=== PATIENT | female | born 2000 | race Hispanic/Latino ===

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

== ENCOUNTER 2020-05-05 07:38 | Observation (INO) | payer MEDICAID ==
[~2020-05-05] VITALS: Ht 149.9 cm; Wt 68.0 kg
[~2020-05-05 07:38] MED LIST: PREN-202 PO
[2020-05-05] MEDS ORDERED: ONDANSETRON HCL 4 MG/2 ML VIAL ONE ×3 (07:55→23:08)
[2020-05-05 08:03] LABS: BASOPHILS % (AUTO) 0.4 % (0.0-5.0); EOSINOPHILS % (AUTO) 1.7 % (0.0-8.0); HEMATOCRIT 37.9 % (36-48); LYMPHOCYTES % (AUTO) 36.1 % (21.0-51.0); MEAN CORPUSCULAR HEMOGLOBIN 26.4 pg (27.0-33.0); MEAN CORPUSCULAR HGB CONC 31.9 g/dL (32.0-36.0); MEAN CORPUSCULAR VOLUME 82.6 fL (80-100); MONOCYTES % (AUTO) 6.3 % (3.0-13.0); NEUTROPHILS % (AUTO) 54.4 % (40.0-77.0); PLATELET COUNT (AUTO) 365 K/uL (130-400); RED BLOOD CELL COUNT(AUTO) 4.59 MIL/uL (4.00-5.50); RED CELL DISTRIBUTION WIDTH 14.9 % (11.0-15.5); WHITE BLOOD COUNT (AUTO) 10.6 K/uL (4.8-10.8)
[2020-05-05] MEDS ORDERED: KETOROLAC TROMETHAMINE 30MG/ML ONE (08:04)
[2020-05-05] MEDS ORDERED: MORPHINE SULFATE 4 MG/1ML SYG ONE (08:04)
[2020-05-05 08:16] LABS: ALBUMIN 3.4 g/dL (3.5-5.0); BILIRUBIN,TOTAL 0.1 mg/dL (0.2-1.0); POTASSIUM 3.7 mmol/L (3.5-5.1); TOTAL PROTEIN, SERUM 7.2 g/dL (6.0-8.3)
[2020-05-05 08:19] LABS: APPEARANCE,URINE Clear (CLEAR); BILIRUBIN,URINE Negative (NEGATIVE); COLOR,URINE Yellow (YELLOW); GLUCOSE, URINE (UA) Negative (NEGATIVE); KETONES,URINE Negative (NEGATIVE); LEUKOCYTE ESTERASE ,URINE Moderate (NEGATIVE); NITRATE,URINE Negative (NEGATIVE); OCCULT BLOOD,URINE Large (NEGATIVE); PH,URINE 6.5 (5.0-8.0); PROTEIN,URINE Trace mg/dL (NEGATIVE); UROBILINOGEN,URINE 0.2 mg/dL (0.2-1.0)
[2020-05-05 08:25] LABS: HCG,QUAL RESULT NEGATIVE (NEGATIVE)
[2020-05-05 08:49] LABS: BACTERIA,URINE Moderate /HPF (None Seen)
[2020-05-05 08:50] LABS: SQUAMOUS EPITHELIAL CELL,UR 0-2 /HPF (0-2)
[2020-05-05] MEDS ORDERED: ACETAMINOPHEN 325 MG TAB PO PRN ×2 (12:15)
[2020-05-05] MEDS ORDERED: LACTULOSE 20 GM/30 ML UDCUP PO PRN (12:15)
[2020-05-05] MEDS ORDERED: HYDROMORPHONE HCL 0.5 MG/0.5 ML ML IV PRN (13:30)
[2020-05-05] MEDS ORDERED: HYDROMORPHONE HCL 0.5 MG/0.5 ML ML ONE ×3 (14:10→23:08)
[2020-05-05] MEDS ORDERED: CEFTRIAXONE SODIUM 1 GM ONE (14:40)
[2020-05-05] MEDS ORDERED: SODIUM CHLORIDE 0.9% 1000ML 1,000 ML IV ONE (14:41)
[2020-05-05] MEDS ORDERED: SODIUM CHLORIDE 0.9% 50 ML IV ONE (14:41)
[2020-05-05] MEDS ORDERED: FAMOTIDINE/PF 20 MG/2 ML VIAL IV ONE (20:03)
[2020-05-06] VITALS (16 sets, daily range): BP systolic 97–134; BP diastolic 40–88
[2020-05-06] MEDS ORDERED: HYDROMORPHONE HCL 0.5 MG/0.5 ML ML ONE ×2 (03:08→07:12)
[2020-05-06 05:48] LABS: BASOPHILS % (AUTO) 0.3 % (0.0-5.0); EOSINOPHILS % (AUTO) 0.8 % (0.0-8.0); HEMATOCRIT 36.4 % (36-48); LYMPHOCYTES % (AUTO) 19.9 % (21.0-51.0); MEAN CORPUSCULAR HEMOGLOBIN 26.9 pg (27.0-33.0); MEAN CORPUSCULAR HGB CONC 32.1 g/dL (32.0-36.0); MEAN CORPUSCULAR VOLUME 83.7 fL (80-100); MONOCYTES % (AUTO) 7.3 % (3.0-13.0); NEUTROPHILS % (AUTO) 71.5 % (40.0-77.0); PLATELET COUNT (AUTO) 271 K/uL (130-400); RED BLOOD CELL COUNT(AUTO) 4.35 MIL/uL (4.00-5.50); WHITE BLOOD COUNT (AUTO) 10.6 K/uL (4.8-10.8)
[2020-05-06 06:00] LABS: CREATININE 1.1 mg/dL (0.5-1.5); POTASSIUM 3.9 mmol/L (3.5-5.1)
[2020-05-06] MEDS ORDERED: LUBIPROSTONE 24 MCG CAP PO SCH (08:00)
[2020-05-06] MEDS ORDERED: ONDANSETRON HCL 4 MG/2 ML VIAL ONE ×2 (08:42→11:36)
[2020-05-06] MEDS ORDERED: ENOXAPARIN SODIUM 40 MG/0.4 ML SYRINGE SQ SCH (09:00)
[2020-05-06] MEDS ORDERED: LACTATED RINGERS 1000ML 1,000 ML IV ONE (10:31)
[2020-05-06] MEDS ORDERED: LIDOCAINE PF 2% 5ML ABBOJECT ONE (11:35)
[2020-05-06] MEDS ORDERED: DEXAMETHASONE SOD PHOSPHATE 10MG/ML 1ML VIAL ONE (11:35)
[2020-05-06] MEDS ORDERED: SUCCINYLCHOLINE 200MG/10ML SYR ONE (11:35)
[2020-05-06] MEDS ORDERED: FENTANYL CITRATE PF 50 MCG/1 ML 2ML VIAL ONE (11:36)
[2020-05-06] MEDS ORDERED: PROPOFOL 10 MG/ML 20ML VIAL IV ONE (11:36)
[2020-05-06] MEDS ORDERED: ROCURONIUM 10MG/1ML SYR 10 MG/ML ML ONE (11:36)
[2020-05-06] MEDS ORDERED: MIDAZOLAM HCL 1 MG/ML 2ML VIAL ONE (11:36)
[2020-05-06] MEDS ORDERED: IOHEXOL-350 50ML VIAL IV ONE (11:43)
[2020-05-06] MEDS: CEFTRIAXONE SODIUM 1 GM IV SCH ×3 (11:45→14:55)
[2020-05-06] MEDS ORDERED: GLYCOPYRROLATE 1 MG/5 ML SYRINGE ONE (12:17)
[2020-05-06] MEDS ORDERED: NEOSTIGMINE 5MG/5ML SYR IV ONE (12:17)
[2020-05-06] MEDS: ONDANSETRON HCL 4 MG/2 ML VIAL IV PRN ×4 (12:58→16:25)
[2020-05-06] MEDS ORDERED: METOCLOPRAMIDE 10 MG/2 ML VIAL ONE (13:04)
[2020-05-06] MEDS ORDERED: MEPERIDINE-PF 25 MG/ML SYG ONE (13:16)
[2020-05-06] MEDS: SODIUM CHLORIDE 0.9% 1000ML 1,000 ML IV SCH ×3 (14:51→15:23)
[2020-05-06] MEDS: FAMOTIDINE/PF 20 MG/2 ML VIAL IV SCH ×2 (14:52→14:55)
[2020-05-06] MEDS: ACETAMINOPHEN-CODEINE 300/30MG TAB PO ONE ×2 (16:22→17:17)
[2020-05-06] MEDS ORDERED: KETOROLAC TROMETHAMINE 15MG/ML IV SCH (17:04)
[2020-05-06] MEDS ORDERED: KETOROLAC TROMETHAMINE 30MG/ML ONE (17:08)
[2020-05-06] MEDS ORDERED: KETOROLAC TROMETHAMINE 30MG/ML IV SCH (18:40)
== END 2020-05-06 20:17 | disposition home or self-care (01) ==
LOC: EDH 07:38 → EDHIP 07:39 → 3CH 05-06 14:04
PROVIDERS: ADMIT Internal Medicine; ATTEND Internal Medicine
DX: N20.2 Calculus of kidney with calculus of ureter (principal); N13.6 Pyonephrosis; K76.0 Fatty (change of) liver, not elsewhere classified; R16.0 Hepatomegaly, not elsewhere classified; K38.1 Appendicular concretions; F41.9 Anxiety disorder, unspecified; N39.0 Urinary tract infection, site not specified; Z79.899 Other long term (current) drug therapy
CPT/HCPCS: 36415 ×2; 52356; 74018 ×2; 74176; 80048; 80053; 81001; 81025; 82360; 84702; 85025 ×2; 87088; 96361; 96374; 96375; 96376; 99284; A4215; A4216; A4221; A4222; A4223; A4354; A4358; A4600; A4663; A6207; C1758; C1769; C1894; C2617; G0378 ×31; J0330; J0696 ×2; J1100; J1170 ×6; J1885 ×2; J2001; J2250; J2270; J2405 ×7; J2704; J2710; J2765; J3490 ×2; J7030 ×4; J7120; J2175; J3010; Q9967

== ENCOUNTER 2020-09-09 16:28 | Emergency (ER) | payer MEDICAID ==
[~2020-09-09] VITALS: Ht 149.9 cm; Wt 70.3 kg
[2020-09-09 16:30] VITALS: BP 117/70
[2020-09-09] MEDS ORDERED: PERID15L MM (16:51)
== END 2020-09-09 16:59 | disposition home or self-care (01) ==
LOC: EDH 16:28
DX: K14.8 Other diseases of tongue (principal); Z79.899 Other long term (current) drug therapy
CPT/HCPCS: 99282

== ENCOUNTER 2021-02-07 23:38 | Emergency (ER) | payer MEDICAID ==
[~2021-02-07] VITALS: Ht 149.9 cm; Wt 68.0 kg
[~2021-02-07 23:38] MED LIST changes: +PERID15L MM; -PREN-202 PO
[2021-02-08 00:10] LABS: BILIRUBIN,URINE Negative (NEGATIVE); COLOR,URINE Yellow (YELLOW); GLUCOSE, URINE (UA) Negative (NEGATIVE); KETONES,URINE Negative (NEGATIVE); LEUKOCYTE ESTERASE ,URINE Small (NEGATIVE); NITRATE,URINE Negative (NEGATIVE); OCCULT BLOOD,URINE Negative (NEGATIVE); PROTEIN,URINE Negative (NEGATIVE); UROBILINOGEN,URINE 0.2 mg/dL (0.2-1.0)
[2021-02-08 00:13] LABS: APPEARANCE,URINE SLIGHTLY CLOUDY (CLEAR)
[2021-02-08 00:27] LABS: AMORPHOUS SEDIMENT,UR Few /LPF (None Seen); BACTERIA,URINE Few /HPF (None Seen); RBC,URINE None Seen /HPF (0-1); SQUAMOUS EPITHELIAL CELL,UR 0-2 /HPF (0-2)
[2021-02-08] MEDS ORDERED: ACETAMINOPHEN 500 MG TABLET PO ONE (00:30)
[2021-02-08] MEDS ORDERED: CEFTRIAXONE 1G VIAL IM ONE (00:30)
[2021-02-08] MEDS ORDERED: LIDOCAINE HCL-MPF 1% 2ML VIAL ONE (00:39)
[2021-02-08] MEDS ORDERED: ACET-66 PO (00:46)
[2021-02-08] MEDS ORDERED: CEPH500B PO (00:46)
[2021-02-08 00:48] VITALS: BP 118/73
== END 2021-02-08 01:07 | disposition home or self-care (01) ==
LOC: EDH 23:38
DX: O23.42 Unspecified infection of urinary tract in pregnancy, second trimester (principal); N39.0 Urinary tract infection, site not specified; Z3A.14 14 weeks gestation of pregnancy
CPT/HCPCS: 81001; 87088; 96372; 99284; J0696; J3490

== ENCOUNTER 2021-06-01 13:39 | Observation (INO) | payer MEDICAID ==
[~2021-06-01] VITALS: Ht 149.9 cm; Wt 73.9 kg
[~2021-06-01 13:39] MED LIST changes: +ACET-66 PO; +CEPH500B PO
[2021-06-01 13:41] VITALS: BP 125/72
[2021-06-01 14:26] LABS: APPEARANCE,URINE CLEAR (CLEAR); BILIRUBIN,URINE NEGATIVE (NEGATIVE); COLOR,URINE YELLOW (YELLOW); GLUCOSE, URINE (UA) NEGATIVE (NEGATIVE); KETONES,URINE NEGATIVE (NEGATIVE); LEUKOCYTE ESTERASE ,URINE TRACE (NEGATIVE); NITRATE,URINE NEGATIVE (NEGATIVE); OCCULT BLOOD,URINE NEGATIVE (NEGATIVE); PH,URINE 7.5 (5.0-8.0); PROTEIN,URINE NEGATIVE (NEGATIVE); UROBILINOGEN,URINE 0.2 mg/dL (0.2-1.0)
[2021-06-01 14:36] LABS: RBC,URINE 0-1 /HPF (0-1)
[2021-06-01 14:37] LABS: BACTERIA,URINE Rare /HPF (None Seen); SQUAMOUS EPITHELIAL CELL,UR Rare /HPF (0-2)
== END 2021-06-01 16:08 | disposition home or self-care (01) ==
LOC: EDH 13:39 → LDH 13:40
PROVIDERS: ADMIT Obstetrics & Gynecology; ATTEND Obstetrics & Gynecology
DX: O99.891 Other specified diseases and conditions complicating pregnancy (principal); M54.50 Low back pain, unspecified; O26.892 Other specified pregnancy related conditions, second trimester; R06.02 Shortness of breath; Z3A.20 20 weeks gestation of pregnancy
CPT/HCPCS: 59025; 81001; 99284; G0378 ×2

== ENCOUNTER 2022-01-27 06:27 | Day surgery (SDC) | payer MEDICAID ==
[2022-01-26 12:15] VITALS: BP 116/74
[2022-01-27] VITALS (20 sets, daily range): BP systolic 117–142; BP diastolic 65–101
[~2022-01-27] VITALS: Ht 149.9 cm; Wt 72.5 kg
[~2022-01-27 06:27] MED LIST changes: -ACET-66 PO; -CEPH500B PO; +MIRA25TA PO; -PERID15L MM
[2022-01-27] MEDS ORDERED: LACTATED RINGERS 1000ML 1,000 ML IV ONE (06:53)
[2022-01-27] MEDS ORDERED: SUCCINYLCHOLINE 200MG/10ML SYR ONE (07:20)
[2022-01-27] MEDS ORDERED: LIDOCAINE PF 100MG/5ML (2%) SYRINGE 5ML ONE (07:20)
[2022-01-27] MEDS ORDERED: DEXAMETHASONE SOD PHOSPHATE 10MG/ML 1ML VIAL ONE (07:20)
[2022-01-27] MEDS ORDERED: MIDAZOLAM HCL 1 MG/ML 2ML VIAL ONE (07:20)
[2022-01-27] MEDS ORDERED: FENTANYL CITRATE PF 50 MCG/1 ML 2ML VIAL ONE (07:21)
[2022-01-27] MEDS ORDERED: ROCURONIUM 10MG/1ML SYR 10 MG/ML ML ONE (07:21)
[2022-01-27] MEDS ORDERED: PROPOFOL 10 MG/ML 20ML VIAL IV ONE ×2 (07:21→09:23)
[2022-01-27] MEDS ORDERED: NEOSTIGMINE 5MG/5ML SYR IV ONE (07:21)
[2022-01-27] MEDS ORDERED: GLYCOPYRROLATE 1 MG/5 ML SYRINGE ONE (07:21)
[2022-01-27] MEDS ORDERED: ONDANSETRON 4MG INJ ONE ×2 (07:21→10:11)
[2022-01-27] MEDS ORDERED: CEFTRIAXONE 1G VIAL IVP ONE (08:00)
[2022-01-27] MEDS ORDERED: ESMOLOL HCL 10 MG/ML 10 ML VIAL ONE (08:35)
[2022-01-27] MEDS ORDERED: METOCLOPRAMIDE 10 MG/2 ML VIAL ONE (10:11)
[2022-01-27] MEDS ORDERED: PROMETHAZINE HCL 25 MG/ML 1ML AMPULE ONE (10:18)
[2022-01-27] MEDS ORDERED: PHENAZOPYRIDINE HCL 200 MG TABLET ONE (11:17)
== END 2022-01-27 12:15 | disposition home or self-care (01) ==
LOC: DAH 06:27
PROVIDERS: ATTEND Urology
DX: Z46.6 Encounter for fitting and adjustment of urinary device (principal); Z20.822 Contact with and (suspected) exposure to COVID-19; N20.0 Calculus of kidney; Z98.890 Other specified postprocedural states
CPT/HCPCS: 84703; 87426; 36415; 50590; 52332; A6260; J7030; J7120 ×2; J3010; J0330; J3490 ×5; J1100; J2710; J2550; J0696; J2250; J2405 ×2; J2765; A4358; A4215; A4223; A4222; A4221; A4663; A4600; A4510; J2001; J2704

== ENCOUNTER 2023-01-25 12:26 | Emergency (ER) | payer MEDICAID, OTHER ==
[~2023-01-25] VITALS: Ht 152.4 cm; Wt 63.5 kg
[2023-01-25 13:11] VITALS: BP 146/88; PULSE 85; RESP 18
[2023-01-25 13:37] LABS: HCG,QUALITATIVE URINE NEGATIVE (NEGATIVE)
[2023-01-25 13:39] LABS: APPEARANCE,URINE CLOUDY (CLEAR); BILIRUBIN,URINE NEGATIVE (NEGATIVE); COLOR,URINE YELLOW (YELLOW); GLUCOSE, URINE (UA) NEGATIVE (NEGATIVE); KETONES,URINE NEGATIVE (NEGATIVE); LEUKOCYTE ESTERASE ,URINE 500 Leu/uL (NEGATIVE); NITRATE,URINE NEGATIVE (NEGATIVE); PROTEIN,URINE 30 mg/dL (NEGATIVE); UROBILINOGEN,URINE 0.2 mg/dL (0.2-1.0)
[2023-01-25 13:40] LABS: ADD UA MICROSCOPIC YES
[2023-01-25 14:03] LABS: BACTERIA,URINE FEW /HPF (None Seen); MUCUS,URINE MOD LPF (None Seen); OTHER CASTS, URINE 1 /LPF (None Seen); SQUAMOUS EPITHELIAL CELL,UR FEW /HPF (0-2); WBC,URINE 51-100 /HPF (0-1)
[2023-01-25] MEDS ORDERED: IBUPROFEN 600 MG TABLET PO ONE (16:00)
[2023-01-25] MEDS ORDERED: SULF1TAB42 PO (16:11)
[2023-01-25] MEDS ORDERED: IBUP-2070 PO (16:11)
== END 2023-01-25 16:30 | disposition home or self-care (01) ==
LOC: EDH 12:26
DX: N39.0 Urinary tract infection, site not specified (principal); R51.9 Headache, unspecified; Z98.890 Other specified postprocedural states
CPT/HCPCS: 70486; 72125; 81001; 81025; 87088

== ENCOUNTER 2024-03-05 14:44 | Observation (INO) | payer MEDICAID ==
[~2024-03-05] VITALS: Ht 149.9 cm; Wt 71.7 kg
[~2024-03-05 14:44] MED LIST changes: +IBUP-2070 PO; +SULF1TAB42 PO
[2024-03-05 14:45] VITALS: BP 143/88; PULSE 125; RESP 20; TEMP 100.9
[2024-03-05 15:18] LABS: RAPID GROUP A STREP negative (NEGATIVE)
[2024-03-05 15:21] LABS: APPEARANCE,URINE CLEAR (CLEAR); BILIRUBIN,URINE NEGATIVE (NEGATIVE); COLOR,URINE LIGHT-YELLOW (YELLOW); GLUCOSE, URINE (UA) NEGATIVE (NEGATIVE); KETONES,URINE 20 mg/dL (NEGATIVE); LEUKOCYTE ESTERASE ,URINE 75 Leu/uL (NEGATIVE); NITRATE,URINE NEGATIVE (NEGATIVE); OCCULT BLOOD,URINE NEGATIVE (NEGATIVE); PH,URINE 6.5 (5.0-8.0); PROTEIN,URINE 10 mg/dL (NEGATIVE); UROBILINOGEN,URINE 0.2 mg/dL (0.2-1.0)
[2024-03-05 15:23] LABS: SARS-CoV-2, RNA, NAAT NEGATIVE SARS CoV-2 (NEGATIVE)
[2024-03-05 15:26] LABS: ADD UA MICROSCOPIC YES
[2024-03-05 15:26] LABS: BASOPHILS # (AUTO) 0.04 K/uL (0.00-0.20); BASOPHILS % (AUTO) 0.3 % (0.0-5.0); EOSINOPHILS # (AUTO) 0.08 K/uL (0.00-0.70); EOSINOPHILS % (AUTO) 0.5 % (0.0-8.0); HEMATOCRIT 37.1 % (36-48); IMMATURE GRANULOCYTE ABSOLUTE 0.08 K/uL (0-1); LYMPHOCYTES # (AUTO) 1.5 K/uL (1.0-4.8); LYMPHOCYTES % (AUTO) 9.3 % (21.0-51.0); MEAN CORPUSCULAR HEMOGLOBIN 29.8 pg (27.0-33.0); MEAN CORPUSCULAR HGB CONC 32.9 g/dL (32.0-36.0); MEAN CORPUSCULAR VOLUME 90.7 fL (79-99); MONOCYTES # (AUTO) 0.7 K/uL (0.1-1.0); MONOCYTES % (AUTO) 4.2 % (3.0-13.0); NEUTROPHILS # (AUTO) 13.5 K/uL (1.8-7.7); NEUTROPHILS % (AUTO) 85.2 % (40.0-77.0); PLATELET COUNT (AUTO) 310 K/uL (130-400); RED BLOOD CELL COUNT(AUTO) 4.09 MIL/uL (4.00-5.50); RED CELL DISTRIBUTION WIDTH 13.2 % (11.0-15.5); WHITE BLOOD COUNT (AUTO) 15.9 K/uL (4.8-10.8)
[2024-03-05 15:28] LABS: INFLUENZA TYPE A Negative For Type A (NEGATIVE); INFLUENZA TYPE B Negative For Type B (NEGATIVE)
[2024-03-05 15:30] LABS: MUCUS,URINE RARE LPF (None Seen); SQUAMOUS EPITHELIAL CELL,UR FEW /HPF (0-2); WBC,URINE 26-50 /HPF (0-1)
[2024-03-05 15:34] LABS: AMPHET/METH SCREEN,URINE NEGATIVE (NEGATIVE); BARBITURATE SCREEN, URINE NEGATIVE (NEGATIVE); BENZODIAZEPINES SCREEN,URINE NEGATIVE (NEGATIVE); CANNABINOID SCREEN,URINE NEGATIVE (NEGATIVE); COCAINE SCREEN,URINE NEGATIVE (NEGATIVE); OPIATE SCREEN,URINE NEGATIVE (NEGATIVE); PHENCYCLIDINE SCREEN,URINE NEGATIVE (NEGATIVE)
[2024-03-05 15:43] LABS: CREATININE 0.5 mg/dL (0.5-1.0); POTASSIUM 3.5 mmol/L (3.5-5.1)
[2024-03-05 15:49] LABS: ALBUMIN 2.8 g/dL (3.5-5.0); BILIRUBIN,TOTAL 0.2 mg/dL (0.2-1.0); TOTAL PROTEIN, SERUM 7.1 g/dL (6.0-8.3)
[2024-03-05] MEDS: ondanSETRON 4MG INJ IVP ONE (16:29)
[2024-03-05] MEDS: cefTRIAXone 1G VIAL IVPB ONE (16:30)
[2024-03-05] MEDS: LACTATED RINGERS 1000ML 1,000 ML IV SCH (16:30)
[2024-03-05] MEDS: acetaMINOPHEN 1,000 MG/100 ML VIAL IVPB ONE (17:12)
== END 2024-03-05 18:00 | disposition home or self-care (01) ==
LOC: EDH 14:44 → LDH 14:45 → EDH 14:52
PROVIDERS: ADMIT Internal Medicine; ATTEND Internal Medicine
DX: O21.9 Vomiting of pregnancy, unspecified (principal); O99.891 Other specified diseases and conditions complicating pregnancy; M54.9 Dorsalgia, unspecified; R10.2 Pelvic and perineal pain; O99.512 Diseases of the respiratory system complicating pregnancy, second trimester; R05.9 Cough, unspecified; R09.81 Nasal congestion; Z20.822 Contact with and (suspected) exposure to COVID-19; Z79.899 Other long term (current) drug therapy; Z98.890 Other specified postprocedural states; Z3A.20 20 weeks gestation of pregnancy
CPT/HCPCS: 96365; 96375 ×2; 80053; 80305; 85025; 87086 ×2; 87186; 87880; 87804 ×2; 81001; 36415; 87635; G0378 ×3; G0379; J0696; J2405; 59025; 96360; 96367

== ENCOUNTER 2024-03-30 17:56 | Emergency (ER) | payer MEDICAID ==
[~2024-03-30] VITALS: Ht 149.9 cm; Wt 70.8 kg
[2024-03-30 18:50] LABS: BASOPHILS # (AUTO) 0.03 K/uL (0.00-0.20); BASOPHILS % (AUTO) 0.2 % (0.0-5.0); EOSINOPHILS # (AUTO) 0.06 K/uL (0.00-0.70); EOSINOPHILS % (AUTO) 0.4 % (0.0-8.0); HEMATOCRIT 33.8 % (36-48); IMMATURE GRANULOCYTE ABSOLUTE 0.06 K/uL (0-1); LYMPHOCYTES # (AUTO) 2.3 K/uL (1.0-4.8); MEAN CORPUSCULAR HEMOGLOBIN 29.8 pg (27.0-33.0); MEAN CORPUSCULAR VOLUME 87.6 fL (79-99); MONOCYTES # (AUTO) 0.7 K/uL (0.1-1.0); MONOCYTES % (AUTO) 5.3 % (3.0-13.0); NEUTROPHILS # (AUTO) 10.9 K/uL (1.8-7.7); NEUTROPHILS % (AUTO) 77.7 % (40.0-77.0); PLATELET COUNT (AUTO) 354 K/uL (130-400); RED BLOOD CELL COUNT(AUTO) 3.86 MIL/uL (4.00-5.50); RED CELL DISTRIBUTION WIDTH 13.2 % (11.0-15.5)
[2024-03-30 19:01] LABS: CREATININE 0.5 mg/dL (0.5-1.0); POTASSIUM 3.7 mmol/L (3.5-5.1)
[2024-03-30 19:09] LABS: COVID19 (SARS ANTIGEN RAPID) PRESUMPTIVE NEGATIVE (NEGATIVE); INFLUENZA TYPE A Negative For Type A (NEGATIVE); INFLUENZA TYPE B Negative For Type B (NEGATIVE)
--- NOTE | 2024-03-30 19:09 | ERN ---
ED Note History of Present Illness Stated Complaint: CP Chief Complaint: Chest Pain Time Seen by MD: 18:05 Time Seen by Midlevel: 18:05 Dictation: The patient is a 24-year-old female with history of ectopic who presents to the emergency department with complaints of chest pain and shortness of breath onset 3:30 p.m. patient also reports an occasional nonproductive cough for three days. Denies any fevers. Patient reports being 24 weeks . A[address] Cornell Stephen. Patient reports she was at [facility] two weeks ago for the same issue and was told her D-dimer was elevated and to follow up with OB. Patient denies any vaginal bleeding or abnormal discharge, abdominal pain, nausea vomiting diarrhea. Allergies: Coded Allergies: No Known Allergies (Unverified Allergy, Unknown, 02/03/16) No Known Drug Allergies (Unverified Allergy, Unknown, 08/10/19) Home Meds Active Scripts Ibuprofen (Ibuprofen) 600 Mg Tablet, 600 MG PO Q6H PRN for PAIN, #30 TAB Prov:YORDY TORRES 01/25/23 Sulfamethoxazole/Trimethoprim (Bactrim Ds Tablet) 800 Mg-160 Mg Tablet, 1 TAB PO BID for 7 Days, #14 TAB 0 Refills Prov:YORDY TORRES 01/25/23 Reported Medications Mirabegron (Myrbetriq) 25 Mg Tab.er.24h, 25 MG PO DAILY PRN for PAIN, TAB 01/26/22 Past Medical History Past Medical History: No Pertinent History Surgical History: Other Surgical History Other: PELVIC SX Family History: Negative Social History: Negative, Lives with family, Other LMP: Sep 13, 2023 : 5 Para: 3 Aborts: 1 RN Note Reviewed/Agreed w/PFSH: Yes Review of System Dictation Constitutional: Negative for fever,chills, and weight loss Eyes: Negative for injury, pain,redness, and discharge ENT: Negative for injury,pain or swelling Cardiovascular: Negative for palpitations, and edema positive for chest pain Respiratory: Negative for , and wheezing, positive for shortness of breath, cough Abdomen/GI: Negative for abdominal pain, nausea, vomiting, diarrhea, and constipation Back: Negative for injury and pain : Negative for injury, bleeding and discharge MS/Extremity: Negative for injury and deformity Skin: Negative for rash, and discoloration Neuro: Negative for headache, weakness, numbness, tingling, and seizure Psych: Negative for suicide ideation, homicidal ideation, and hallucinations Initial Vital Sign VS Vital Signs Date Time Temp Pulse Resp B/P (MAP) Pulse Ox O2 Delivery O2 Flow Rate FiO2 03/30/24 18:03 98.2 110 18 124/76 96 Room Air 0 03/30/24 19:02 21 Physical Exam Dictation Vital Signs reviewed General Appearance: Alert, oriented x 3, no acute distress, well developed, nourished. Head and Face: non-traumatic. Eyes: PERRL, pink conjunctivas, eyelid no trauma, anterior chamber with arcus senilis. Ears: Pinnas intact and no signs of trauma or erythema ear canals clear and no discharge TM no erythema Nose: No discharge, no bleeding. Oropharynx: Mouth normal, tongue pink. pharynx clear,no erythema, tonsils no exudates, no abscesses noted, mucous membrane moist Neck: Supple, non-tender, no thyromegaly, no masses, no JVD, no bruits Breast:Deferred Chest:No tenderness, no crepitus, no paradoxical movement, no retractions Lungs:Clear, well-ventilated, symmetric, no rales, no wheezing, no rhonchi, no stridor, good breath sounds bilaterally Heart: Regular rate, regular rhythm, no murmur, no gallops Vascular: no peripheral edema, Abdomen: Soft, positive bowel sounds, nondistended, no guarding, nontender, no rebound, no masses no hepatomegaly, no splenomegaly, no Mello's sign, no hernias. Rectal: Deferred Genital: Deferred Neurological: Normal speech, motor function intact, sensory function intact Musculoskeletal: Neck nontender, full range of motion, back nontender, full range of motion, Extremities: nontender, full range of motion Skin: Color pink, dry, no turgor, no rash, no lacerations, no abrasions, no contusions. Lymphatic: Deferred Results (Laboratory/Radiology) Laboratory/Radiology Laboratory Tests Test 03/30/24 18:40 03/30/24 18:46 03/30/24 19:22 White Blood Count 14.0 K/uL (4.8-10.8) H Red Blood Count 3.86 MIL/uL (4.00-5.50) L Hemoglobin 11.5 g/dL (12.0-16.0) L Hematocrit 33.8 % (36-48) L Mean Corpuscular Volume 87.6 fL (79-99) Mean Corpuscular Hemoglobin 29.8 pg (27.0-33.0) Mean Corpuscular Hemoglobin Concent 34.0 g/dL (32.0-36.0) Red Cell Distribution Width 13.2 % (11.0-15.5) Platelet Count 354 K/uL (130-400) Mean Platelet Volume 9.3 fL (7.5-10.5) Immature Granulocyte % (Auto) 0.4 % (0-1) Neutrophils (%) (Auto) 77.7 % (40.0-77.0) H Lymphocytes (%) (Auto) 16.0 % (21.0-51.0) L Monocytes (%) (Auto) 5.3 % (3.0-13.0) Eosinophils (%) (Auto) 0.4 % (0.0-8.0) Basophils (%) (Auto) 0.2 % (0.0-5.0) Neutrophils # (Auto) 10.9 K/uL (1.8-7.7) H Lymphocytes # (Auto) 2.3 K/uL (1.0-4.8) Monocytes # (Auto) 0.7 K/uL (0.1-1.0) Eosinophils # (Auto) 0.06 K/uL (0.00-0.70) Basophils # (Auto) 0.03 K/uL (0.00-0.20) Absolute Immature Granulocyte (auto 0.06 K/uL (0-1) Nucleated Red Blood Cells 0.0 % (0.0-0.19) D-Dimer Quantitative (PE/DVT) 739 ng/mL (0-500) *H Sodium Level 140 mmol/L (136-145) Potassium Level 3.7 mmol/L (3.5-5.1) Chloride Level 104 mmol/L (101-111) Carbon Dioxide Level 25 mmol/L (21-32) Blood Urea Nitrogen 8 mg/dL (7-18) Creatinine 0.5 mg/dL (0.5-1.0) Glomerular Filtration Rate Calc 134 mL/min (>90) Random Glucose 90 mg/dL (70-105) Total Calcium 8.9 mg/dL (8.5-10.1) Troponin I High Sensitivity < 4 ng/L (4-50) L B-Type Natriuretic Peptide 6 pg/mL (0-100) Human Chorionic Gonadotropin, Quant 73971 mIU/mL (0-5) H Influenza Type A Antigen Negative For Type A Influenza Type B Antigen Negative For Type B SARS-CoV-2 Antigen (Rapid) PRESUMPTIVE NEGATIVE Urine Color YELLOW (YELLOW) Urine Appearance CLOUDY (CLEAR) H Urine pH 6.5 (5.0-8.0) Urine Specific [place] 1.025 (1.001-1.031) Urine Protein 30 mg/dL (NEGATIVE) H Urine Glucose (UA) NEGATIVE mg/dL (NEGATIVE) Urine Ketones NEGATIVE mg/dL (NEGATIVE) Urine Occult Blood NEGATIVE (NEGATIVE) Urine Nitrate NEGATIVE (NEGATIVE) Urine Bilirubin NEGATIVE mg/dL (NEGATIVE) Urine Urobilinogen 0.2 mg/dL (0.2-1.0) Urine Leukocyte Esterase 250 Alejandro/uL (NEGATIVE) H Urine RBC 6-10 /HPF (0-1) H Urine WBC 26-50 /HPF (0-1) H Urine Squamous Epithelial Cells MOD /HPF (0-2) Urine Bacteria RARE /HPF (None Seen) Urine Opiates Screen NEGATIVE (NEGATIVE) Urine Barbiturates Screen NEGATIVE (NEGATIVE) Urine Phencyclidine Screen NEGATIVE (NEGATIVE) Urine Amphetamines Screen NEGATIVE (NEGATIVE) Urine Benzodiazepines Screen NEGATIVE (NEGATIVE) Urine Cocaine Screen NEGATIVE (NEGATIVE) Urine Marijuana (THC) Screen NEGATIVE (NEGATIVE) REASON: ro dvt ORDERING PHYSICIAN: JAMES CERVANTES RELIEF PILOT PROCEDURE: VENOUS JENN - US VENOUS DOPPLER BILATERAL US VENOUS DOPPLER BILATERAL CLINICAL HISTORY: dvt COMPARISON: None FINDINGS: Bilateral lower extremity venous Doppler ultrasound was performed. The greater saphenous, common femoral, deep femoral, femoral , popliteal veins are easily compressible with the ultrasound probe. Calf veins appear normal as well. There is normal response to compression. IMPRESSION: There is no identified deep venous thrombosis by compression Labs Reviewed?: Yes EKG: (+) rhythm (Sinus tachycardia) EKG Comment: EKG 03/30/2024 1807 ventricular rate 107, regular rate and rhythm sinus tachycardia, no STEMI ED Course ED Course Orders Procedure Category Date Status Time Cbc With Differential LAB 03/30/24 Complete 18:32 B-Type Natriuretic LAB 03/30/24 Complete Peptide 18:32 12 Lead Ekg Tracing- EKG 03/30/24 Complete Technical 18:32 0.9%Nacl 1000ml (Ns PHA 03/30/24 Complete 1000ml) 19:00 Acetaminophen 500mg PHA 03/30/24 Complete Tab (Tylenol 500mg T 19:00 Troponin I High LAB 03/30/24 Complete Sensitivity 18:32 Basic Metabolic Panel LAB 03/30/24 Complete 18:32 Hcg,Quantitative LAB 03/30/24 Complete 18:32 Covid19 (Sars Antigen LAB 03/30/24 Complete Rapid) 18:32 D-Dimer LAB 03/30/24 Complete 18:32 Influenza Type A & B, LAB 03/30/24 Complete Rapid 18:32 Urinalysis Profile LAB 03/30/24 Complete 18:53 Drug Screen Urine LAB 03/30/24 Complete 18:53 Culture Urine DONNA 03/30/24 In Process 19:32 Us Venous Doppler US 03/30/24 Resulted Bilateral 19:33 Ceftriaxone 1g Vial PHA 03/30/24 Complete (Rocephine 1g Inj) 20:00 Mag/Alum/Simeth 30ml PHA 03/30/24 Complete (Maalox Plus 30ml) 20:30 *Nursing CPOE 03/30/24 Transmitted Communication: 20:14 Acetaminophen 325 Tab PHA 03/31/24 In Process (Tylenol 325mg Tab 01:00 Current Medications Medications (Trade) Dose Ordered Sig/Leanne Route PRN Reason Start Time Stop Time Status Last Admin Dose Admin Acetaminophen (TYLenol 325MG TAB) 650 mg ONCE ONCE PO 03/31/24 01:00 03/31/24 01:01 03/31/24 00:37 Acetaminophen (TYLenol 500MG TAB) 1,000 mg ONCE ONCE PO 03/30/24 19:00 03/30/24 19:01 DC 03/30/24 19:11 Al Hydroxide/Mg Hydroxide (MAALox PLUS 30ML) 30 ml ONCE ONCE PO 03/30/24 20:30 03/30/24 20:31 DC 03/30/24 20:26 Ceftriaxone Sodium (ROCEphine 1G INJ) 1 gm ONCE ONCE IVPB 03/30/24 20:00 03/30/24 20:01 DC 03/30/24 20:06 Sodium Chloride 1,000 ml @ 0 mls/hr ONCE ONCE IV 03/30/24 19:00 03/30/24 19:01 DC 03/30/24 19:11 Vital Signs Date Time Temp Pulse Resp B/P (MAP) Pulse Ox O2 Delivery O2 Flow Rate FiO2 03/30/24 23:48 93 18 100/53 97 Room Air* 0 21 03/30/24 23:09 101 18 123/74 98 Room Air* 0 21 03/30/24 21:20 98.2 98 20 118/72 99 Room Air* 0 21 03/30/24 19:02 102 19 122/69 97 Room Air* 0 21 03/30/24 18:03 98.2 110 18 124/76 96 Room Air 0 HEART Score Response (Comments) Value History: Low suspicion (0) 0 EKG: Normal 0 Age: < 45yrs (0) 0 Risk Factors: No known risk factors (0) 0 Initial Troponin: Normal limit (0) 0 HEART Score Risk: Low Risk for MACE (1-3) Total 0 Medical Decision Making [facility] The patient is a 24-year-old female with history of ectopic who presents to the emergency department with complaints of chest pain and shortness of breath onset 3:30 p.m. patient also reports an occasional nonproductive cough for three days. Denies any fevers. Patient reports being 24 weeks . G [address] Cornell Stephen. Patient reports she was at [facility] two weeks ago for the same issue and was told her D-dimer was elevated and to follow up with OB. Patient denies any vaginal bleeding or abnormal discharge, abdominal pain, nausea vomiting diarrhea. CBC showed leukocytosis, mild normocytic anemia, chemistry showed negative troponin, negative BNP, no electrolyte imbalance, D-dimer 739, toxicology and serology negative, urinalysis positive for leukocyte esterase. Patient was t reated with the Rocephin. Ultrasound showed no evidence of DVT. Patient refused x-ray previous patient also refused V/Q scan. Risks and benefits discussed with the patient. Patient reports she felt better with Maalox. Patient in no acute distress, in no respiratory distress. O2 saturation 99% on room air. Spoke to patients obgydago Stephen who accepts transfer to [facility] for admission. for further observation Differential diagnosis: DVT, gastritis, costochondritis, pneumonia, electrolyte imbalance Comorbidities: Ectopic Tests considered and not ordered secondary to shared decision making include: none Previous outside records reviewed: none Risk of complication and/or morbidity or mortality of patient management: The patient meets criteria for Transfer Need for emergency major/minor surgery: No There are no social concerns with this patient. I independently interpreted the tests I ordered (labs, urinalysis, etc.) I discussed the case with the following specialists: Dr.Fernando Stephen Historian: pateint. I independently interpreted imaging studies and EKGs that I ordered (US, CT, XR, EKG, etc.). External chart review: none. Medical management and examination interpretation discussions were had by me with other qualified healthcare professionals as indicated for the patient's care. DX & DISP Disposition: Transfer Decision to Admit Date: Mar 31, 2024 Decision to Admit Time: 00:41 Departure Impression: Primary Impression: Chest pain Additional Impressions: Shortness of breath, Gastritis, 24 weeks gestation of , UTI (urinary tract infection), Leukocytosis, Anemia, Elevated d-dimer Condition: Stable Referrals: DONA CROWDER MD (PCP) I have reviewed the case, and I agree with, Diagnosis and Plan JAMES CERVANTES RELIEF PILOT Mar 30, 2024 19:09
[2024-03-30] MEDS: 0.9%NACL 1000ML 1,000 ML IV ONE (19:11)
[2024-03-30] MEDS: acetaMINOPHEN 500 MG TABLET PO ONE (19:11)
[2024-03-30 19:13] LABS: B-TYPE NATRIURETIC PEPTIDE 6 pg/mL (0-100)
[2024-03-30 19:31] LABS: APPEARANCE,URINE CLOUDY (CLEAR); BILIRUBIN,URINE NEGATIVE (NEGATIVE); COLOR,URINE YELLOW (YELLOW); GLUCOSE, URINE (UA) NEGATIVE (NEGATIVE); KETONES,URINE NEGATIVE (NEGATIVE); LEUKOCYTE ESTERASE ,URINE 250 Leu/uL (NEGATIVE); NITRATE,URINE NEGATIVE (NEGATIVE); OCCULT BLOOD,URINE NEGATIVE (NEGATIVE); PH,URINE 6.5 (5.0-8.0); PROTEIN,URINE 30 mg/dL (NEGATIVE); UROBILINOGEN,URINE 0.2 mg/dL (0.2-1.0)
[2024-03-30 19:32] LABS: ADD UA MICROSCOPIC YES
[2024-03-30 19:36] LABS: AMPHET/METH SCREEN,URINE NEGATIVE (NEGATIVE); BACTERIA,URINE RARE /HPF (None Seen); BARBITURATE SCREEN, URINE NEGATIVE (NEGATIVE); BENZODIAZEPINES SCREEN,URINE NEGATIVE (NEGATIVE); CANNABINOID SCREEN,URINE NEGATIVE (NEGATIVE); COCAINE SCREEN,URINE NEGATIVE (NEGATIVE); MUCUS,URINE FEW LPF (None Seen); OPIATE SCREEN,URINE NEGATIVE (NEGATIVE); PHENCYCLIDINE SCREEN,URINE NEGATIVE (NEGATIVE); SQUAMOUS EPITHELIAL CELL,UR MOD /HPF (0-2); WBC,URINE 26-50 /HPF (0-1)
--- NOTE | 2024-03-30 20:04 | NUR ---
PATIENT REFUSING CXR ON ACCOUNT OF BEING . PATIENT REINFORCED THE RISKS AND CONCEQUENCES INVOLVED WITH EXAM WELL BENIFITS. PATIENT STATES UNDERSTANDING AND ACCEPTS RISK; ED MIDLEVEL MADE AWARE.
[2024-03-30] MEDS: cefTRIAXone 1G VIAL IVPB ONE (20:06)
[2024-03-30] MEDS: MAG/ALUM/SIMETH 30 ML UDCUP PO ONE (20:26)
--- NOTE | 2024-03-30 20:48 | HMCIMG ---
US VENOUS DOPPLER BILATERAL CLINICAL HISTORY: dvt COMPARISON: None FINDINGS: Bilateral lower extremity venous Doppler ultrasound was performed. The greater saphenous, common femoral, deep femoral, femoral , popliteal veins are easily compressible with the ultrasound probe. Calf veins appear normal as well. There is normal response to compression. IMPRESSION: There is no identified deep venous thrombosis by compression
[2024-03-30 21:20] VITALS: TEMP 98.3
--- NOTE | 2024-03-30 22:33 | NUR ---
TRANSFER CALL PLACED TO [facility] SUPER[facility]OR [facility] TO INITIATE TRANSFER TO [facility]. EXPLAINED TO THE COORDINATOR THAT THE ER STAFF CALLED DONA CROWDER MD (HER OB PHYSICIAN) @ [phone]. HE REQUESTS THAT SHE BE TRANSFERRED TO [facility].
--- NOTE | 2024-03-30 23:16 | NUR ---
TRANSFER PT. WAS ACCEPTED @ 224 BY DONA CROWDER MD FOR TRANSFER TO [facility]. BED ASSIGNMENT AT THIS TIME: L/D 6. REPORT: [phone]
--- NOTE | 2024-03-30 23:19 | NUR ---
[facility] CALLED FOR TRANSPORT OF STABLE PATIENT (26 WEEKS)
--- NOTE | 2024-03-30 23:41 | EKG ---
[facility] Test Date: 2024-03-30 Test Time: 18:07:46 Pat Name: CECILIA VALENCIA Department: ED Room: Gender: F Alarm Security Or Surveillance Monitor: [id number] : 2000 Requested By: JAMES CERVANTES Order Number: [id number] Reading MD: Diane Sher Measurements Intervals [place] Rate: 107 P: 58 AL: 123 QRS: 14 QRSD: 78 T: 8 QT: 328 QTc: 438 Interpretive Statements Sinus tachycardia Compared to ECG 07/31/2019 14:06:54 Sinus rhythm no longer present Electronically Signed On 04-03-2024 08:14:42 TOOL CRIB MANAGER by Diane Sher Please click the below link to view image of tracing.
[2024-03-30 23:48] VITALS: BP 100/53; PULSE 93; RESP 18; O2SAT 97
[2024-03-31] MEDS: acetaMINOPHEN 325 MG TAB PO ONE (00:37)
== END 2024-03-31 00:39 | disposition short-term general hospital (02) ==
LOC: EDH 17:56
DX: O26.892 Other specified pregnancy related conditions, second trimester (principal); R07.89 Other chest pain; R06.02 Shortness of breath; O99.112 Other diseases of the blood and blood-forming organs and certain disorders involving the immune mechanism complicating pregnancy, second trimester; D72.829 Elevated white blood cell count, unspecified; O99.612 Diseases of the digestive system complicating pregnancy, second trimester; K29.70 Gastritis, unspecified, without bleeding; O99.012 Anemia complicating pregnancy, second trimester; O23.42 Unspecified infection of urinary tract in pregnancy, second trimester; N39.0 Urinary tract infection, site not specified; R10.2 Pelvic and perineal pain; M79.605 Pain in left leg; M79.604 Pain in right leg; Z3A.24 24 weeks gestation of pregnancy; Z20.822 Contact with and (suspected) exposure to COVID-19; Z79.899 Other long term (current) drug therapy; Z98.890 Other specified postprocedural states
CPT/HCPCS: 99285; 93970; 96374; 87426; 84484; 80048; 83880; 80305; 84702; 85025; 85378; 87086 ×2; 87186; 87804 ×2; 81001; 36415; 93005; J7030; J0696